=== PATIENT | female | born 1965 | race Caucasian/White ===

== ENCOUNTER 2020-05-13 11:30 | Emergency (ER) | payer BC ==
[2020-05-13] MEDS ORDERED: Acetaminophen/Codeine 30-300mg Tablet ONE (12:25)
--- NOTE | 2020-05-13 16:22 | RAD ---
LEFT FOURTH TOE: 05/13/20 Post reduction views show considerable improvement in the alignment of the proximal phalanx fracture. There is now little or no angulation. IMPRESSION: Good reduction of the proximal phalanx fracture. POS: HOME
--- NOTE | 2020-05-13 16:27 | RAD ---
LEFT FOOT THREE VIEWS: 05/13/20 A fracture is present through the proximal phalanx of the fourth toe. There is lateral angulation at the distal portion of the fragment. The remainder of the foot appeared intact. A large calcaneal spur was noted and there is calcification or ossification at the insertion of the Achilles tendon. IMPRESSION: Angulated fracture of the left fourth toe. POS: HOME
== END 2020-05-13 12:29 | disposition home or self-care (01) ==
LOC: BURERS 11:30
DX: S92.512A Displaced fracture of proximal phalanx of left lesser toe(s), initial encounter for closed fracture (principal); F17.210 Nicotine dependence, cigarettes, uncomplicated; W01.0XXA Fall on same level from slipping, tripping and stumbling without subsequent striking against object, initial encounter
CPT/HCPCS: 28515